=== PATIENT | female | born 1960 | race Caucasian/White ===

== ENCOUNTER → 2016-07-04 | Day surgery (SDC) | payer BC ==
[~2016-07-04] MED LIST: COLACE; COLACE PO; CRESTOR PO; FLAGYL; GLUCOSAMINE500 M1 PO; LEVAQUIN; LEVOXYL125 MCG PO; MULTI VITAMIN1 EACH PO; SYNTHROID
--- NOTE | ~2016-07-04 | OR ---
Unit #: [id number] #: [id number] Patient: DEBI EDDY [id number] [address] [address] [id number] O MR#: [id number] NAME: DEBI EDDY ROOM: Date of Procedure: 07/04/2016 Admission Date: 07/04/2016 Surgeon: Richard Hernandez M.D. : 1960 Attending Physician: Richard Hernandez M.D. Primary Care Physician: Kayla Aguilar M.D. OPERATIVE REPORT PREOPERATIVE DIAGNOSIS Screening colonoscopy. POSTOPERATIVE DIAGNOSES 1. Scattered sigmoid diverticular disease. 2. Ascending colon and descending colon polyp, less than 0.2 cm each. PROCEDURES PERFORMED 1. Colonoscopy to cecum. 2. Cold biopsy excision of colonic polyps x2. ANESTHESIA IV sedation. COMPLICATIONS None. INDICATIONS FOR PROCEDURE The patient is a 55-year-old, who presents with screening colonoscopy after sigmoid diverticular excision. DESCRIPTION OF PROCEDURE The patient was taken to the operating theater and placed in a left lateral decubitus position. IV sedation was initiated. Digital rectal exam was normal. Colonoscope was then passed under direct vision and navigated to the cecum. The patient had excellent prep. She had some scattered diverticula mainly in the descending colon. No inflammation. She had two polyps, one in the ascending colon and the other proximal to the descending colon anastomosis. These were less than 0.2 cm, were sessile. Cold biopsies were obtained, which provided complete excision. Hemostasis was adequate. I saw no other abnormalities. She tolerated the procedure well and sent to the recovery room in good condition. PLAN Recommend Colace on a daily basis. We will follow up on her biopsy results. Likely repeat colonoscopy in 5 years. Dictated by... Richard Hernandez M.D. JNO/modl Unit #: [id number] #: [id number] Patient: DEBI EDDY TD: 07/04/2016 23:31 JOB #: [id number] OPERATIVE REPORT Page 1 of 1 X Olsofka,Richard N MD X PROCEDURE OPERATIVE NOTE
== END | disposition home or self-care (01) ==
LOC: COPS 11:15
DX: Z12.11 Encounter for screening for malignant neoplasm of colon (principal); D12.2 Benign neoplasm of ascending colon; D12.4 Benign neoplasm of descending colon; K57.30 Diverticulosis of large intestine without perforation or abscess without bleeding
CPT/HCPCS: 88305